=== PATIENT | female | born 1935 | race Caucasian/White ===

== ENCOUNTER 2022-02-03 14:58 | Inpatient (IN) | payer MEDICARE, BC ==
[~2022-02-03] VITALS: Ht 167.6 cm; Wt 74.4 kg
[2022-02-03] MEDS ORDERED: MAGNESIUM HYDROXIDE 30 ML LIQUID UDC PO PRN (21:00)
[2022-02-03] MEDS ORDERED: REMEDY ESSENTIAL ZINC PASTE 113 GM TP PRN (21:00)
[2022-02-03] MEDS ORDERED: HYDROCODONE/APAP 5-325MG TABLET PO PRN (21:00)
[2022-02-03] MEDS ORDERED: ONDANSETRON 4 MG/2 ML VIAL IV PRN (21:00)
[2022-02-03] MEDS ORDERED: ZOLPIDEM 5 MG TABLET PO PRN (21:00)
[2022-02-03] MEDS ORDERED: DOCUSATE SODIUM 100 MG CAPSULE PO SCH (21:00)
[2022-02-03] MEDS ORDERED: REMEDY ESSENTIAL ZINC PASTE 113 GM TOP PRN (21:00)
[2022-02-03] MEDS ORDERED: ACETAMINOPHEN 325 MG TABLET PO PRN (21:00)
[2022-02-03] MEDS ORDERED: METO75TA PO (21:26)
[2022-02-03] MEDS ORDERED: EZET10TA15 PO (21:26)
[2022-02-03] MEDS ORDERED: LEVO500T90 PO (21:26)
[2022-02-03] MEDS ORDERED: APIX5TAB PO (21:26)
[2022-02-03] MEDS ORDERED: OMEP20TA5 PO (21:26)
[2022-02-03] MEDS ORDERED: ACET-73 PO (21:26)
[2022-02-03] MEDS ORDERED: SERT50TA PO (21:26)
[2022-02-03] MEDS ORDERED: LEVO75TA7 PO (21:26)
[2022-02-03 22:02] VITALS: BP 107/64
[2022-02-04 04:00] VITALS: BP 145/81
[2022-02-04] MEDS ORDERED: REMEDY ESSENTIAL ZINC PASTE 113 GM TOP PRN (06:00)
[2022-02-04] MEDS ORDERED: PANTOPRAZOLE SODIUM 40 MG TABLET.DR PO SCH ×2 (07:00→09:00)
[2022-02-04 07:47] VITALS: BP 130/67
[2022-02-04] MEDS ORDERED: LEVOTHYROXINE SODIUM 75 MCG TABLET PO SCH (09:00)
[2022-02-04] MEDS: APIXABAN 5 MG TABLET PO SCH ×2 (09:12→17:10)
[2022-02-04] MEDS: METOPROLOL TARTRATE 25 MG TABLET PO SCH ×2 (09:12→17:09)
[2022-02-04] MEDS: SERTRALINE HCL 50 MG TABLET PO SCH (09:14)
[2022-02-04] MEDS: levoFLOXacin 250 MG TABLET PO SCH (09:15)
[2022-02-04] MEDS ORDERED: FURO20TA4 PO (12:01)
[2022-02-04] MEDS ORDERED: PRAV80TA21 PO (12:01)
[2022-02-04] MEDS ORDERED: MEMA10TA PO (12:01)
[2022-02-04] MEDS: ENSURE ENLIVE (VAN) 240 ML LIQUID PO SCH ×2 (12:33→17:09)
[2022-02-04 16:00] VITALS: BP 125/71
[2022-02-04 20:47] VITALS: BP 133/70
[2022-02-04] MEDS ORDERED: EZETIMIBE 10 MG TABLET PO SCH (21:00)
[2022-02-05 04:50] VITALS: BP 146/75
[2022-02-05] MEDS: LEVOTHYROXINE SODIUM 75 MCG TABLET PO SCH (06:30)
[2022-02-05] MEDS: PANTOPRAZOLE SODIUM 40 MG TABLET.DR PO SCH (06:30)
[2022-02-05 07:30] VITALS: BP 132/69
[2022-02-05] MEDS: METOPROLOL TARTRATE 25 MG TABLET PO SCH ×2 (08:12→17:00)
[2022-02-05] MEDS: SERTRALINE HCL 50 MG TABLET PO SCH (08:12)
[2022-02-05] MEDS: levoFLOXacin 250 MG TABLET PO SCH (08:12)
[2022-02-05] MEDS: APIXABAN 5 MG TABLET PO SCH ×2 (08:13→17:05)
[2022-02-05] MEDS: ENSURE ENLIVE (VAN) 240 ML LIQUID PO SCH ×3 (08:13→17:12)
[2022-02-05 16:00] VITALS: BP 109/63
[2022-02-05 20:00] VITALS: BP 127/71
[2022-02-06 04:33] VITALS: BP 140/79
[2022-02-06] MEDS: PANTOPRAZOLE SODIUM 40 MG TABLET.DR PO SCH (05:58)
[2022-02-06] MEDS: LEVOTHYROXINE SODIUM 75 MCG TABLET PO SCH (05:58)
[2022-02-06 08:15] VITALS: BP 148/68
[2022-02-06] MEDS: METOPROLOL TARTRATE 25 MG TABLET PO SCH ×2 (09:00→17:23)
[2022-02-06] MEDS: SERTRALINE HCL 100 MG TABLET PO SCH (09:53)
[2022-02-06] MEDS: ENSURE ENLIVE (VAN) 240 ML LIQUID PO SCH ×3 (09:53→17:23)
[2022-02-06] MEDS: levoFLOXacin 250 MG TABLET PO SCH (09:53)
[2022-02-06] MEDS: APIXABAN 5 MG TABLET PO SCH ×2 (09:53→17:23)
[2022-02-06] MEDS ORDERED: MEMANTINE HCL 5 MG TABLET PO SCH (12:00)
[2022-02-06] MEDS ORDERED: DONE5TAB7 PO (12:48)
[2022-02-06 13:08] LABS: HEMATOCRIT 33.8 % (31.2-41.9); MEAN CORPUSCULAR HEMOGLOBIN 28.1 uug (24.7-32.8); MEAN CORPUSCULAR VOLUME 85.3 fL (75.5-95.3); PLATELET COUNT (AUTO) 191 K/uL (179-408)
[2022-02-06 13:42] LABS: CREATININE 1.1 mg/dL (0.6-1.3); POTASSIUM 3.5 mmol/L (3.5-5.1)
[2022-02-06 16:10] VITALS: BP 112/60
[2022-02-06 20:00] VITALS: BP 124/71
[2022-02-06] MEDS: DONEPEZIL 5 MG TABLET PO SCH (20:30)
[2022-02-07 03:53] VITALS: BP 130/70
[2022-02-07] MEDS: PANTOPRAZOLE SODIUM 40 MG TABLET.DR PO SCH (06:06)
[2022-02-07] MEDS: LEVOTHYROXINE SODIUM 75 MCG TABLET PO SCH (06:06)
[2022-02-07 07:30] VITALS: BP 120/70
[2022-02-07] MEDS: METOPROLOL TARTRATE 25 MG TABLET PO SCH ×2 (09:00→20:57)
[2022-02-07] MEDS: FUROSEMIDE 20 MG TABLET PO SCH (09:41)
[2022-02-07] MEDS: SERTRALINE HCL 100 MG TABLET PO SCH (09:41)
[2022-02-07] MEDS: ENSURE ENLIVE (VAN) 240 ML LIQUID PO SCH ×3 (09:42→17:18)
[2022-02-07] MEDS: levoFLOXacin 250 MG TABLET PO SCH (09:42)
[2022-02-07] MEDS: APIXABAN 5 MG TABLET PO SCH ×2 (09:50→17:16)
[2022-02-07] MEDS: HYDROCODONE/APAP 5-325MG TABLET PO SCH ×2 (13:29→21:02)
[2022-02-07 16:00] VITALS: BP 130/70
[2022-02-07 20:24] VITALS: BP 132/84
[2022-02-07] MEDS: DONEPEZIL 5 MG TABLET PO SCH (20:56)
[2022-02-08 04:00] VITALS: BP 137/80
[2022-02-08] MEDS: LEVOTHYROXINE SODIUM 75 MCG TABLET PO SCH (06:05)
[2022-02-08] MEDS: PANTOPRAZOLE SODIUM 40 MG TABLET.DR PO SCH (06:05)
[2022-02-08 06:37] LABS: HEMATOCRIT 32.7 % (31.2-41.9); MEAN CORPUSCULAR HEMOGLOBIN 28.4 uug (24.7-32.8); MEAN CORPUSCULAR VOLUME 84.5 fL (75.5-95.3); PLATELET COUNT (AUTO) 198 K/uL (179-408)
[2022-02-08 07:11] LABS: BILIRUBIN,TOTAL 0.5 mg/dL (0.2-1.0); CREATININE 1.1 mg/dL (0.6-1.3); MAGNESIUM 2.1 mg/dL (1.8-2.4); PHOSPHOROUS 3.8 mg/dL (2.5-4.9); POTASSIUM 3.4 mmol/L (3.5-5.1); TOTAL PROTEIN, SERUM 6.8 g/dL (6.4-8.2)
[2022-02-08 07:12] LABS: THYROID STIMULATING HORMONE 8.14 mIU/mL (0.358-3.740)
[2022-02-08 08:12] VITALS: BP 118/64
[2022-02-08] MEDS: SERTRALINE HCL 100 MG TABLET PO SCH (08:45)
[2022-02-08] MEDS: FUROSEMIDE 20 MG TABLET PO SCH (08:45)
[2022-02-08] MEDS: METOPROLOL TARTRATE 25 MG TABLET PO SCH ×2 (08:46→21:02)
[2022-02-08] MEDS: HYDROCODONE/APAP 5-325MG TABLET PO SCH ×2 (08:47→21:03)
[2022-02-08] MEDS: APIXABAN 5 MG TABLET PO SCH ×2 (08:52→17:25)
[2022-02-08] MEDS: ENSURE ENLIVE (VAN) 240 ML LIQUID PO SCH ×3 (08:53→17:27)
[2022-02-08] MEDS ORDERED: POTASSIUM CHLORIDE 20 MEQ TAB.PRT.SR PO ONE (11:00)
[2022-02-08 16:00] VITALS: BP 125/83
[2022-02-08] MEDS: DONEPEZIL 5 MG TABLET PO SCH (21:03)
[2022-02-09 04:00] VITALS: BP 140/70
[2022-02-09] MEDS: PANTOPRAZOLE SODIUM 40 MG TABLET.DR PO SCH (06:33)
[2022-02-09] MEDS: LEVOTHYROXINE SODIUM 75 MCG TABLET PO SCH (06:33)
[2022-02-09 07:54] VITALS: BP 149/84
[2022-02-09] MEDS: SERTRALINE HCL 100 MG TABLET PO SCH (08:25)
[2022-02-09] MEDS: HYDROCODONE/APAP 5-325MG TABLET PO SCH ×2 (08:25→20:09)
[2022-02-09] MEDS: METOPROLOL TARTRATE 25 MG TABLET PO SCH ×2 (08:25→20:11)
[2022-02-09] MEDS: FUROSEMIDE 20 MG TABLET PO SCH (08:26)
[2022-02-09] MEDS: ENSURE ENLIVE (VAN) 240 ML LIQUID PO SCH ×3 (08:29→16:47)
[2022-02-09] MEDS: APIXABAN 5 MG TABLET PO SCH ×2 (08:29→16:49)
[2022-02-09 16:30] VITALS: BP 121/67
[2022-02-09] MEDS: DONEPEZIL 5 MG TABLET PO SCH (20:11)
[2022-02-09 20:26] VITALS: BP 140/75
[2022-02-10 04:10] VITALS: BP 148/86
[2022-02-10] MEDS: LEVOTHYROXINE SODIUM 75 MCG TABLET PO SCH (06:10)
[2022-02-10] MEDS: PANTOPRAZOLE SODIUM 40 MG TABLET.DR PO SCH (06:10)
[2022-02-10 08:00] VITALS: BP 111/53
[2022-02-10] MEDS: SERTRALINE HCL 100 MG TABLET PO SCH (08:48)
[2022-02-10] MEDS: FUROSEMIDE 20 MG TABLET PO SCH (08:48)
[2022-02-10] MEDS: HYDROCODONE/APAP 5-325MG TABLET PO SCH ×2 (08:48→20:41)
[2022-02-10] MEDS: ENSURE ENLIVE (VAN) 240 ML LIQUID PO SCH ×3 (09:00→17:00)
[2022-02-10] MEDS: APIXABAN 5 MG TABLET PO SCH ×2 (09:02→17:06)
[2022-02-10] MEDS: METOPROLOL TARTRATE 25 MG TABLET PO SCH ×2 (09:03→20:41)
[2022-02-10 16:00] VITALS: BP 117/56
[2022-02-10 20:00] VITALS: BP 124/62
[2022-02-10] MEDS: DONEPEZIL 5 MG TABLET PO SCH (20:40)
[2022-02-11 04:00] VITALS: BP 122/64
[2022-02-11] MEDS: PANTOPRAZOLE SODIUM 40 MG TABLET.DR PO SCH (06:04)
[2022-02-11] MEDS: LEVOTHYROXINE SODIUM 75 MCG TABLET PO SCH (06:04)
[2022-02-11] MEDS: FUROSEMIDE 20 MG TABLET PO SCH (08:41)
[2022-02-11] MEDS: SERTRALINE HCL 100 MG TABLET PO SCH (08:41)
[2022-02-11] MEDS: METOPROLOL TARTRATE 25 MG TABLET PO SCH ×2 (08:42→20:29)
[2022-02-11] MEDS: HYDROCODONE/APAP 5-325MG TABLET PO SCH ×2 (08:43→20:31)
[2022-02-11] MEDS: APIXABAN 5 MG TABLET PO SCH ×2 (08:44→16:33)
[2022-02-11] MEDS: ENSURE ENLIVE (VAN) 240 ML LIQUID PO SCH (08:47)
[2022-02-11 15:01] VITALS: BP 92/53
[2022-02-11] MEDS: PROTEIN SUPPLEMENT (PROSTAT) 30 ML LIQUID PO SCH (15:30)
[2022-02-11] MEDS: GLUCERNA SHAKE 237 ML CAN PO SCH (18:47)
[2022-02-11] MEDS: DONEPEZIL 5 MG TABLET PO SCH (20:29)
[2022-02-11 20:38] VITALS: BP 133/70
[2022-02-12] MEDS: PANTOPRAZOLE SODIUM 40 MG TABLET.DR PO SCH (07:00)
[2022-02-12] MEDS: LEVOTHYROXINE SODIUM 75 MCG TABLET PO SCH (07:00)
[2022-02-12 08:00] VITALS: BP_SYST 109; BP_SYST 115; BP_DIAS 60; BP_DIAS 66; BP_DIAS 69
[2022-02-12] MEDS: PROTEIN SUPPLEMENT (PROSTAT) 30 ML LIQUID PO SCH (08:00)
[2022-02-12] MEDS: GLUCERNA SHAKE 237 ML CAN PO SCH ×2 (08:00→17:48)
[2022-02-12] MEDS: SERTRALINE HCL 100 MG TABLET PO SCH (10:32)
[2022-02-12] MEDS: FUROSEMIDE 20 MG TABLET PO SCH (10:33)
[2022-02-12] MEDS: METOPROLOL TARTRATE 25 MG TABLET PO SCH ×2 (10:33→20:52)
[2022-02-12] MEDS: HYDROCODONE/APAP 5-325MG TABLET PO SCH ×2 (10:35→20:51)
[2022-02-12] MEDS: APIXABAN 5 MG TABLET PO SCH ×2 (10:37→17:46)
[2022-02-12 15:43] VITALS: BP 103/60
[2022-02-12 20:00] VITALS: BP 127/68
[2022-02-12] MEDS: DONEPEZIL 5 MG TABLET PO SCH (20:50)
[2022-02-13 04:00] VITALS: BP 122/60
[2022-02-13] MEDS: LEVOTHYROXINE SODIUM 75 MCG TABLET PO SCH (06:14)
[2022-02-13] MEDS: PANTOPRAZOLE SODIUM 40 MG TABLET.DR PO SCH (06:14)
[2022-02-13] MEDS: HYDROCODONE/APAP 5-325MG TABLET PO SCH ×2 (08:20→20:47)
[2022-02-13] MEDS: FUROSEMIDE 20 MG TABLET PO SCH (08:21)
[2022-02-13] MEDS: SERTRALINE HCL 100 MG TABLET PO SCH (08:21)
[2022-02-13] MEDS: METOPROLOL TARTRATE 25 MG TABLET PO SCH ×2 (08:21→20:47)
[2022-02-13] MEDS: APIXABAN 5 MG TABLET PO SCH ×2 (08:22→17:24)
[2022-02-13] MEDS: GLUCERNA SHAKE 237 ML CAN PO SCH ×2 (08:22→17:21)
[2022-02-13] MEDS: PROTEIN SUPPLEMENT (PROSTAT) 30 ML LIQUID PO SCH (08:23)
[2022-02-13 09:11] VITALS: BP 129/69
[2022-02-13 16:28] VITALS: BP 108/57
[2022-02-13] MEDS: DONEPEZIL 5 MG TABLET PO SCH (20:46)
[2022-02-13 20:48] VITALS: BP 98/55
[2022-02-14 04:33] VITALS: BP 143/71
[2022-02-14] MEDS: PANTOPRAZOLE SODIUM 40 MG TABLET.DR PO SCH (06:58)
[2022-02-14] MEDS: LEVOTHYROXINE SODIUM 75 MCG TABLET PO SCH (06:59)
[2022-02-14 07:55] VITALS: BP 127/58
[2022-02-14] MEDS: FUROSEMIDE 20 MG TABLET PO SCH (08:38)
[2022-02-14] MEDS: METOPROLOL TARTRATE 25 MG TABLET PO SCH ×2 (08:38→22:48)
[2022-02-14] MEDS: SERTRALINE HCL 100 MG TABLET PO SCH (08:38)
[2022-02-14] MEDS: HYDROCODONE/APAP 5-325MG TABLET PO SCH ×2 (08:39→22:46)
[2022-02-14] MEDS: APIXABAN 5 MG TABLET PO SCH ×2 (08:39→17:19)
[2022-02-14] MEDS: GLUCERNA SHAKE 237 ML CAN PO SCH ×2 (08:40→17:20)
[2022-02-14] MEDS: PROTEIN SUPPLEMENT (PROSTAT) 30 ML LIQUID PO SCH (08:40)
[2022-02-14 12:00] VITALS: BP 137/62
[2022-02-14 16:00] VITALS: BP 106/57
[2022-02-14 20:24] VITALS: BP 157/60
[2022-02-14] MEDS: DONEPEZIL 5 MG TABLET PO SCH (22:48)
[2022-02-15 04:30] VITALS: BP 108/55
[2022-02-15] MEDS: PANTOPRAZOLE SODIUM 40 MG TABLET.DR PO SCH (05:53)
[2022-02-15] MEDS: LEVOTHYROXINE SODIUM 75 MCG TABLET PO SCH (05:54)
[2022-02-15 09:18] VITALS: BP 146/82
[2022-02-15] MEDS: SERTRALINE HCL 100 MG TABLET PO SCH (10:18)
[2022-02-15] MEDS: HYDROCODONE/APAP 5-325MG TABLET PO SCH ×3 (10:18→21:00)
[2022-02-15] MEDS: FUROSEMIDE 20 MG TABLET PO SCH (10:18)
[2022-02-15] MEDS: METOPROLOL TARTRATE 25 MG TABLET PO SCH ×2 (10:19→21:02)
[2022-02-15] MEDS: APIXABAN 5 MG TABLET PO SCH ×2 (10:20→16:17)
[2022-02-15] MEDS: PROTEIN SUPPLEMENT (PROSTAT) 30 ML LIQUID PO SCH (10:21)
[2022-02-15] MEDS: GLUCERNA SHAKE 237 ML CAN PO SCH ×2 (10:21→16:18)
[2022-02-15 16:55] VITALS: BP 125/60
[2022-02-15] MEDS: DONEPEZIL 5 MG TABLET PO SCH (20:56)
[2022-02-15 21:51] VITALS: BP 117/64
[2022-02-15 21:55] VITALS: BP 117/64
[2022-02-16 03:04] VITALS: BP 136/70
[2022-02-16 05:37] VITALS: BP 130/67
[2022-02-16] MEDS: LEVOTHYROXINE SODIUM 75 MCG TABLET PO SCH (06:36)
[2022-02-16] MEDS: PANTOPRAZOLE SODIUM 40 MG TABLET.DR PO SCH (06:36)
[2022-02-16 08:13] VITALS: BP 119/70
[2022-02-16] MEDS: FUROSEMIDE 20 MG TABLET PO SCH (09:39)
[2022-02-16] MEDS: SERTRALINE HCL 100 MG TABLET PO SCH (09:40)
[2022-02-16] MEDS: METOPROLOL TARTRATE 25 MG TABLET PO SCH ×2 (09:42→22:35)
[2022-02-16] MEDS: HYDROCODONE/APAP 5-325MG TABLET PO SCH ×2 (09:43→22:33)
[2022-02-16] MEDS: APIXABAN 5 MG TABLET PO SCH ×2 (09:46→17:39)
[2022-02-16] MEDS: GLUCERNA SHAKE 237 ML CAN PO SCH ×2 (09:49→17:40)
[2022-02-16] MEDS: PROTEIN SUPPLEMENT (PROSTAT) 30 ML LIQUID PO SCH (09:50)
[2022-02-16 17:32] VITALS: BP 132/83
[2022-02-16 20:00] VITALS: BP 111/64
[2022-02-16] MEDS: DONEPEZIL 5 MG TABLET PO SCH (22:34)
[2022-02-17 04:00] VITALS: BP 125/59
[2022-02-17] MEDS: LEVOTHYROXINE SODIUM 75 MCG TABLET PO SCH (06:20)
[2022-02-17] MEDS: PANTOPRAZOLE SODIUM 40 MG TABLET.DR PO SCH (06:20)
[2022-02-17 07:53] VITALS: BP 140/71
[2022-02-17] MEDS: METOPROLOL TARTRATE 25 MG TABLET PO SCH ×2 (08:35→22:10)
[2022-02-17] MEDS: FUROSEMIDE 20 MG TABLET PO SCH (08:35)
[2022-02-17] MEDS: HYDROCODONE/APAP 5-325MG TABLET PO SCH ×2 (08:41→22:11)
[2022-02-17] MEDS: SERTRALINE HCL 100 MG TABLET PO SCH (08:43)
[2022-02-17] MEDS: APIXABAN 5 MG TABLET PO SCH ×2 (08:43→17:13)
[2022-02-17] MEDS: GLUCERNA SHAKE 237 ML CAN PO SCH ×2 (08:46→17:13)
[2022-02-17] MEDS: PROTEIN SUPPLEMENT (PROSTAT) 30 ML LIQUID PO SCH (08:47)
[2022-02-17 15:21] VITALS: BP 108/50
[2022-02-17 20:00] VITALS: BP 121/54
[2022-02-17] MEDS: DONEPEZIL 5 MG TABLET PO SCH (22:09)
[2022-02-18] MEDS: LEVOTHYROXINE SODIUM 75 MCG TABLET PO SCH (06:29)
[2022-02-18] MEDS: PANTOPRAZOLE SODIUM 40 MG TABLET.DR PO SCH (06:29)
[2022-02-18 08:03] VITALS: BP 101/44
[2022-02-18] MEDS: GLUCERNA SHAKE 237 ML CAN PO SCH (08:31)
[2022-02-18] MEDS: PROTEIN SUPPLEMENT (PROSTAT) 30 ML LIQUID PO SCH (08:31)
[2022-02-18] MEDS: APIXABAN 5 MG TABLET PO SCH (09:00)
[2022-02-18] MEDS: FUROSEMIDE 20 MG TABLET PO SCH (09:00)
[2022-02-18 09:03] VITALS: BP 112/50
[2022-02-18] MEDS: METOPROLOL TARTRATE 25 MG TABLET PO SCH (09:03)
[2022-02-18] MEDS: SERTRALINE HCL 100 MG TABLET PO SCH (09:04)
[2022-02-18] MEDS: HYDROCODONE/APAP 5-325MG TABLET PO SCH (09:04)
== END 2022-02-18 14:20 | disposition home health service (06) | DRG 292 ==
PROVIDERS: ADMIT Physical Medicine & Rehabilitation Pain Medicine; ATTEND Physical Medicine & Rehabilitation Pain Medicine
DX: I11.0 Hypertensive heart disease with heart failure (principal); D68.59 Other primary thrombophilia; N39.0 Urinary tract infection, site not specified; M62.82 Rhabdomyolysis; I50.9 Heart failure, unspecified; R53.1 Weakness; Z95.0 Presence of cardiac pacemaker; I48.91 Unspecified atrial fibrillation; E03.9 Hypothyroidism, unspecified; B96.20 Unspecified Escherichia coli [E. coli] as the cause of diseases classified elsewhere; D64.9 Anemia, unspecified; E86.0 Dehydration; E66.9 Obesity, unspecified; Z68.27 Body mass index [BMI] 27.0-27.9, adult; F03.90 Unspecified dementia, unspecified severity, without behavioral disturbance, psychotic disturbance, mood disturbance, and anxiety; F32.A Depression, unspecified; I25.10 Atherosclerotic heart disease of native coronary artery without angina pectoris; I27.20 Pulmonary hypertension, unspecified; Z91.81 History of falling; M25.561 Pain in right knee; M25.562 Pain in left knee; Z88.0 Allergy status to penicillin; Z88.2 Allergy status to sulfonamides; I34.0 Nonrheumatic mitral (valve) insufficiency
CPT/HCPCS: 36415; 83735; 84100; 84443; 85025; 97161; 97535-GO-CO